=== PATIENT | female | born 1955 | race Two or more races ===

== ENCOUNTER 2018-08-06 11:15 | Outpatient (CLI) | payer BC | END 2018-08-06 23:59 | disposition home health service (06) | LOC: WOU 11:15 | PROVIDERS: ATTEND Specialist | DX: L55.1 Sunburn of second degree (principal); T31.0 Burns involving less than 10% of body surface; T22.022A Burn of unspecified degree of left elbow, initial encounter; I10 Essential (primary) hypertension; E78.5 Hyperlipidemia, unspecified | CPT/HCPCS: 16025; 87070; 87077; A6209; A6210; A6402; G0463 ==

== ENCOUNTER 2018-08-13 11:05 | Outpatient (CLI) | payer BC | END 2018-08-13 23:59 | disposition home health service (06) | LOC: WOU 11:05 | PROVIDERS: ATTEND Specialist | PROC: 0JBN0ZZ Excision of Right Lower Leg Subcutaneous Tissue and Fascia, Open Approach (ICD-10-PCS; principal; 2018-08-13) | DX: L55.2 Sunburn of third degree (principal); L55.1 Sunburn of second degree; T31.0 Burns involving less than 10% of body surface; T24.301A Burn of third degree of unspecified site of right lower limb, except ankle and foot, initial encounter; T25.312D Burn of third degree of left ankle, subsequent encounter; T22.0 Burn of unspecified degree of shoulder and upper limb, except wrist and hand; T24.002D Burn of unspecified degree of unspecified site of left lower limb, except ankle and foot, subsequent encounter; X08.8XXA Exposure to other specified smoke, fire and flames, initial encounter; Y93.9 Activity, unspecified; Y92.89 Other specified places as the place of occurrence of the external cause; F17.200 Nicotine dependence, unspecified, uncomplicated; I10 Essential (primary) hypertension; E78.5 Hyperlipidemia, unspecified; Z86.14 Personal history of Methicillin resistant Staphylococcus aureus infection | CPT/HCPCS: 16020; A6209; A6402; 11042; 11045 ==

== ENCOUNTER 2018-08-27 11:00 | Outpatient (CLI) | payer BC | END 2018-08-27 23:59 | disposition home health service (06) | LOC: WOU 11:00 | PROVIDERS: ATTEND Specialist | DX: T24.301A Burn of third degree of unspecified site of right lower limb, except ankle and foot, initial encounter (principal); T31.0 Burns involving less than 10% of body surface; M86.32 Chronic multifocal osteomyelitis, humerus; I10 Essential (primary) hypertension; E78.5 Hyperlipidemia, unspecified; T25.312D Burn of third degree of left ankle, subsequent encounter; X08.8XXA Exposure to other specified smoke, fire and flames, initial encounter; Y93.H2 Activity, gardening and landscaping; Y92.9 Unspecified place or not applicable; T22.0 Burn of unspecified degree of shoulder and upper limb, except wrist and hand; T24.002D Burn of unspecified degree of unspecified site of left lower limb, except ankle and foot, subsequent encounter | CPT/HCPCS: 16025; A6209; A6253; A6402; 11042 ==

== ENCOUNTER 2018-09-10 11:00 | Outpatient (CLI) | payer BC | END 2018-09-10 23:59 | disposition home health service (06) | LOC: WOU 11:00 | PROVIDERS: ATTEND Specialist | DX: L55.1 Sunburn of second degree (principal); T31.0 Burns involving less than 10% of body surface; F17.210 Nicotine dependence, cigarettes, uncomplicated; E78.5 Hyperlipidemia, unspecified; I10 Essential (primary) hypertension; M86.32 Chronic multifocal osteomyelitis, humerus | CPT/HCPCS: 16030; 87070; 87077; 87186; A6209; A6253; A6402; 11042; 11045 ==

== ENCOUNTER 2018-10-14 13:00 | Outpatient (CLI) | payer BC | END 2018-10-14 23:59 | disposition home or self-care (01) | LOC: MSC 13:00 | PROVIDERS: ATTEND Anesthesiology | DX: G89.4 Chronic pain syndrome (principal); M54.5 Low back pain; M79.2 Neuralgia and neuritis, unspecified; T30.0 Burn of unspecified body region, unspecified degree; M71.022 Abscess of bursa, left elbow; S81.809D Unspecified open wound, unspecified lower leg, subsequent encounter; Z79.891 Long term (current) use of opiate analgesic ==

== ENCOUNTER 2018-10-15 11:00 | Outpatient (CLI) | payer BC | END 2018-10-15 23:59 | disposition home health service (06) | LOC: WOU 11:00 | PROVIDERS: ATTEND Specialist | DX: L55.1 Sunburn of second degree (principal); T31.0 Burns involving less than 10% of body surface; M86.32 Chronic multifocal osteomyelitis, humerus; F17.200 Nicotine dependence, unspecified, uncomplicated; M71.022 Abscess of bursa, left elbow | CPT/HCPCS: 10060; 87070 ×2; 87075 ×2; 87077 ×2; 87186; A6209 ×2; A6407; J3490; 10140 ==

== ENCOUNTER 2018-10-22 11:25 | Outpatient (CLI) | payer BC | END 2018-10-22 23:59 | disposition home health service (06) | LOC: WOU 11:25 | PROVIDERS: ATTEND Specialist | DX: L55.1 Sunburn of second degree (principal); T31.0 Burns involving less than 10% of body surface; M86.32 Chronic multifocal osteomyelitis, humerus; L08.89 Other specified local infections of the skin and subcutaneous tissue; B96.5 Pseudomonas (aeruginosa) (mallei) (pseudomallei) as the cause of diseases classified elsewhere; B95.62 Methicillin resistant Staphylococcus aureus infection as the cause of diseases classified elsewhere; F17.200 Nicotine dependence, unspecified, uncomplicated | CPT/HCPCS: 11042; A6209; A6402 ==

== ENCOUNTER 2018-11-11 15:00 | Outpatient (CLI) | payer BC | END 2018-11-11 23:59 | disposition home or self-care (01) | LOC: MSC 15:00 | PROVIDERS: ATTEND Anesthesiology | DX: M79.2 Neuralgia and neuritis, unspecified (principal); M54.5 Low back pain; T30.0 Burn of unspecified body region, unspecified degree; M71.022 Abscess of bursa, left elbow; S81.809D Unspecified open wound, unspecified lower leg, subsequent encounter; Z79.891 Long term (current) use of opiate analgesic; Z79.899 Other long term (current) drug therapy; I10 Essential (primary) hypertension; R51 Headache; M19.90 Unspecified osteoarthritis, unspecified site ==

== ENCOUNTER 2018-11-19 11:00 | Outpatient (CLI) | payer BC | END 2018-11-19 23:59 | disposition home health service (06) | LOC: WOU 11:00 | PROVIDERS: ATTEND Specialist | DX: L55.1 Sunburn of second degree (principal); T31.0 Burns involving less than 10% of body surface; L02.414 Cutaneous abscess of left upper limb; B95.62 Methicillin resistant Staphylococcus aureus infection as the cause of diseases classified elsewhere; B96.5 Pseudomonas (aeruginosa) (mallei) (pseudomallei) as the cause of diseases classified elsewhere; I10 Essential (primary) hypertension; E78.5 Hyperlipidemia, unspecified; R60.0 Localized edema | CPT/HCPCS: 29581; 87070; 87077; 87186; A6207; A6209; 29580 ==

== ENCOUNTER 2018-12-03 11:00 | Outpatient (CLI) | payer MEDICARE | END 2018-12-03 23:59 | disposition home health service (06) | LOC: WOU 11:00 | PROVIDERS: ATTEND Specialist | DX: L55.1 Sunburn of second degree (principal); T31.0 Burns involving less than 10% of body surface; M86.32 Chronic multifocal osteomyelitis, humerus; Z86.14 Personal history of Methicillin resistant Staphylococcus aureus infection; L02.818 Cutaneous abscess of other sites | CPT/HCPCS: 11042; 11045; A6209 ×2 ==

== ENCOUNTER 2018-12-23 10:00 | Outpatient (CLI) | payer MEDICARE | END 2018-12-23 23:59 | disposition home or self-care (01) | LOC: MSC 10:00 | PROVIDERS: ATTEND Anesthesiology | DX: T30.0 Burn of unspecified body region, unspecified degree (principal); S81.809D Unspecified open wound, unspecified lower leg, subsequent encounter; M71.022 Abscess of bursa, left elbow; M54.5 Low back pain; M79.2 Neuralgia and neuritis, unspecified; Z79.899 Other long term (current) drug therapy; I10 Essential (primary) hypertension; R51 Headache; M19.91 Primary osteoarthritis, unspecified site ==

== ENCOUNTER → 2019-02-10 | Outpatient (CLI) | payer MEDICARE | END | disposition home or self-care (01) | LOC: MSC 13:20 | PROVIDERS: ATTEND Anesthesiology | DX: M54.5 Low back pain (principal); M71.022 Abscess of bursa, left elbow; M79.2 Neuralgia and neuritis, unspecified; T30.0 Burn of unspecified body region, unspecified degree; S81.809D Unspecified open wound, unspecified lower leg, subsequent encounter; I10 Essential (primary) hypertension; R51 Headache; M19.90 Unspecified osteoarthritis, unspecified site; Z79.891 Long term (current) use of opiate analgesic; Z79.899 Other long term (current) drug therapy ==

== ENCOUNTER 2019-02-25 10:30 | Outpatient (CLI) | payer MEDICARE | END 2019-02-25 23:55 | disposition home health service (06) | LOC: WOU 10:30 | PROVIDERS: ATTEND Specialist | DX: T86.822 Skin graft (allograft) (autograft) infection (principal); M86.32 Chronic multifocal osteomyelitis, humerus; F17.200 Nicotine dependence, unspecified, uncomplicated; S42.402S Unspecified fracture of lower end of left humerus, sequela; X58.XXXS Exposure to other specified factors, sequela; I10 Essential (primary) hypertension; E78.5 Hyperlipidemia, unspecified; Z79.899 Other long term (current) drug therapy | CPT/HCPCS: 87070; A6209; G0463 ==

== ENCOUNTER → 2019-03-10 | Outpatient (CLI) | payer MEDICARE | END | disposition home or self-care (01) | LOC: MSC 13:05 | PROVIDERS: ATTEND Anesthesiology | DX: T30.0 Burn of unspecified body region, unspecified degree (principal); S81.809D Unspecified open wound, unspecified lower leg, subsequent encounter; M71.022 Abscess of bursa, left elbow; M54.5 Low back pain; M79.2 Neuralgia and neuritis, unspecified; R52 Pain, unspecified; Z79.899 Other long term (current) drug therapy ==

== ENCOUNTER → 2019-04-07 | Outpatient (CLI) | payer MEDICARE | END | disposition home or self-care (01) | LOC: MSC 15:15 | PROVIDERS: ATTEND Anesthesiology | DX: M54.5 Low back pain (principal); M79.2 Neuralgia and neuritis, unspecified; M71.022 Abscess of bursa, left elbow; S81.809D Unspecified open wound, unspecified lower leg, subsequent encounter; T30.0 Burn of unspecified body region, unspecified degree; Z79.891 Long term (current) use of opiate analgesic; Z79.899 Other long term (current) drug therapy ==

== ENCOUNTER → 2019-05-05 | Outpatient (CLI) | payer MEDICARE | END | disposition home or self-care (01) | LOC: MSC 13:05 | PROVIDERS: ATTEND Anesthesiology | DX: M54.5 Low back pain (principal); T30.0 Burn of unspecified body region, unspecified degree; M71.022 Abscess of bursa, left elbow; S81.809D Unspecified open wound, unspecified lower leg, subsequent encounter; M79.2 Neuralgia and neuritis, unspecified; Z79.899 Other long term (current) drug therapy ==

== ENCOUNTER → 2019-06-16 | Outpatient (CLI) | payer MEDICARE | END | disposition home or self-care (01) | LOC: MSC 13:05 | PROVIDERS: ATTEND Anesthesiology | DX: M71.022 Abscess of bursa, left elbow (principal); S81.809D Unspecified open wound, unspecified lower leg, subsequent encounter; T30.0 Burn of unspecified body region, unspecified degree; M79.2 Neuralgia and neuritis, unspecified; M54.5 Low back pain; Z79.891 Long term (current) use of opiate analgesic; Z79.899 Other long term (current) drug therapy ==

== ENCOUNTER 2019-07-14 14:10 | Outpatient (CLI) | payer MEDICARE | END 2019-07-14 23:59 | disposition home or self-care (01) | LOC: MSC 14:10 | PROVIDERS: ATTEND Anesthesiology | DX: M54.5 Low back pain (principal); M79.2 Neuralgia and neuritis, unspecified; T30.0 Burn of unspecified body region, unspecified degree; M71.022 Abscess of bursa, left elbow; S81.809D Unspecified open wound, unspecified lower leg, subsequent encounter; Z79.891 Long term (current) use of opiate analgesic; Z79.899 Other long term (current) drug therapy ==

== ENCOUNTER → 2019-09-08 | Outpatient (CLI) | payer MEDICARE | END | disposition home or self-care (01) | LOC: MSC 14:10 | PROVIDERS: ATTEND Anesthesiology | DX: M54.5 Low back pain (principal); M79.2 Neuralgia and neuritis, unspecified; T30.0 Burn of unspecified body region, unspecified degree; M71.022 Abscess of bursa, left elbow; S81.809D Unspecified open wound, unspecified lower leg, subsequent encounter; Z79.891 Long term (current) use of opiate analgesic; Z79.899 Other long term (current) drug therapy ==

== ENCOUNTER 2019-10-06 13:00 | Outpatient (CLI) | payer MEDICARE | END 2019-10-06 23:59 | disposition home or self-care (01) | LOC: MSC 13:00 | PROVIDERS: ATTEND Anesthesiology | DX: M79.2 Neuralgia and neuritis, unspecified (principal); T30.0 Burn of unspecified body region, unspecified degree; M71.022 Abscess of bursa, left elbow; S81.809D Unspecified open wound, unspecified lower leg, subsequent encounter; M54.5 Low back pain; Z79.891 Long term (current) use of opiate analgesic; Z79.899 Other long term (current) drug therapy ==

== ENCOUNTER 2019-11-10 11:33 | Outpatient (CLI) | payer MEDICARE | END 2019-11-10 23:59 | disposition home or self-care (01) | LOC: MSC 11:33 | PROVIDERS: ATTEND Anesthesiology | DX: M79.2 Neuralgia and neuritis, unspecified (principal); S81.809D Unspecified open wound, unspecified lower leg, subsequent encounter; M71.022 Abscess of bursa, left elbow; T30.0 Burn of unspecified body region, unspecified degree; M54.5 Low back pain; Z79.891 Long term (current) use of opiate analgesic; Z79.899 Other long term (current) drug therapy ==

== ENCOUNTER → 2019-12-08 | Outpatient (CLI) | payer MEDICARE | END | disposition home or self-care (01) | LOC: MSC 12:00 | PROVIDERS: ATTEND Anesthesiology | DX: M79.2 Neuralgia and neuritis, unspecified (principal); T30.0 Burn of unspecified body region, unspecified degree; S81.809D Unspecified open wound, unspecified lower leg, subsequent encounter; M71.022 Abscess of bursa, left elbow; M54.5 Low back pain; Z79.891 Long term (current) use of opiate analgesic ==

== ENCOUNTER → 2019-12-29 | Outpatient (CLI) | payer MEDICARE | END | disposition home or self-care (01) | LOC: MSC 13:05 | PROVIDERS: ATTEND Anesthesiology | DX: M79.2 Neuralgia and neuritis, unspecified (principal); S81.809D Unspecified open wound, unspecified lower leg, subsequent encounter; M71.022 Abscess of bursa, left elbow; T30.0 Burn of unspecified body region, unspecified degree; Z79.891 Long term (current) use of opiate analgesic; Z79.899 Other long term (current) drug therapy ==

== ENCOUNTER → 2020-01-19 | Outpatient (CLI) | payer MEDICARE | END | disposition home or self-care (01) | LOC: MSC 14:10 | PROVIDERS: ATTEND Anesthesiology | DX: M79.2 Neuralgia and neuritis, unspecified (principal); T30.0 Burn of unspecified body region, unspecified degree; M71.022 Abscess of bursa, left elbow; S81.809D Unspecified open wound, unspecified lower leg, subsequent encounter; M54.5 Low back pain; Z79.891 Long term (current) use of opiate analgesic; Z79.899 Other long term (current) drug therapy ==